=== PATIENT | male | born 1985 | race Caucasian/White ===

== ENCOUNTER 2023-09-01 02:31 | Emergency (ER) | payer SELFPAY ==
[~2023-09-01] VITALS: Ht 167.6 cm; Wt 80.0 kg
[2023-09-01 02:33] VITALS: TEMP 98.2; O2SAT 98
[2023-09-01] MEDS: MECLIZINE 25MG TABLET PO ONE (03:09)
[2023-09-01] MEDS: SODIUM CHLORIDE 0.9% 1,000 ML IV ONE (03:20)
[2023-09-01] MEDS: ONDANSETRON HCL 4MG/2ML INJ IV STA (03:20)
[2023-09-01] MEDS: LORAZEPAM 2MG/ML INJ IV ONE (03:20)
[2023-09-01 03:23] LABS: BASOPHILS % 0.6 % (0.0-2.0); EOSINOPHILS % 2.3 % (0.0-5.0); HEMATOCRIT. 44.5 % (42.0-52.0); HEMOGLOBIN. 14.9 g/dL (14.0-18.0); MEAN CORPUSCULAR HEMOGLOBIN 29.1 pg (28.0-32.0); MEAN CORPUSCULAR HGB CONC 33.6 g/dL (31.0-37.0); MEAN CORPUSCULAR VOLUME 86.8 fL (80.0-94.0); MEAN PLATELET VOLUME 8.7 fl (7.4-10.4); NEUTROPHILS % 54.1 % (40.0-76.0); PLATELET 291 x1000/uL (130-400); RED BLOOD CELL COUNT 5.13 mill/uL (4.7-6.1); RED CELL DISTRIBUTION WIDTH 13.9 % (11.6-14.6); WHITE BLOOD COUNT 13.9 x1000/uL (4.5-11.0)
[2023-09-01 03:43] LABS: ALANINE AMINOTRANSFERASE 18 IU/L (10-49); ALBUMIN 4.4 g/dL (3.2-4.8); ASPARTATE AMINOTRANSFERASE 22 IU/L (<34); BILIRUBIN TOTAL 0.5 mg/dL (0.1-1.0); CALCIUM 8.2 mg/dL (8.7-10.4); CARBON DIOXIDE 23 mEq/L (21-32); CHLORIDE 105 mEq/L (98-107); GLUCOSE 149 mg/dL (70-105); PROTEIN TOTAL 6.9 g/dL (6.0-8.3); SODIUM 139 mEq/L (136-145); UREA NITROGEN BLOOD 10 mg/dL (9-23)
[2023-09-01 03:44] LABS: ETHANOL BLOOD < 10 mg/dL (<10)
[2023-09-01 05:54] LABS: *AMPHETAMINES SCREEN URINE NEGATIVE (NEGATIVE); *BARBITURATES SCREEN URINE NEGATIVE (NEGATIVE); *BENZODIAZEPINES SCREEN URINE NEGATIVE (NEGATIVE); *COCAINE SCREEN URINE NEGATIVE (NEGATIVE); CANNABINOID URINE SCREEN PRESUMPTIVE POSITIVE (NEGATIVE); ECSTASY MDMA SCREEN URINE NEGATIVE (NEGATIVE); METHADONE URINE SCREEN Neg (NEGATIVE); OPIATES URINE SCREEN NEGATIVE (NEGATIVE); PHENCYCLIDINE URINE SCREEN NEGATIVE (NEGATIVE)
[2023-09-01 06:45] VITALS: BP 93/52; PULSE 63; RESP 13
[2023-09-01] MEDS ORDERED: MECLIZINE 25MG TABLET PO NR (06:45)
[2023-09-01] MEDS: ONDANSETRON HCL 4MG/2ML INJ IV NR (06:51)
[2023-09-01] MEDS: POTASSIUM CHLORIDE 20MEQ TABLET SR PO ONE (06:51)
[2023-09-01] MEDS: SODIUM CHLORIDE 0.9% 500 ML IV NR (06:59)
[2023-09-01] MEDS: MECLIZINE 12.5MG TABLET PO NR (07:42)
[2023-09-01] MEDS: IOHEXOL-350 100 ML BOTTLE ONE (08:54)
[2023-09-01] MEDS ORDERED: IOHEXOL-350 100 ML BOTTLE ONE (09:52)
[2023-09-01] MEDS ORDERED: MECL-299 MT (10:24)
== END 2023-09-01 12:27 | disposition home or self-care (01) ==
LOC: ER 02:35
DX: R42 Dizziness and giddiness (principal); R51.9 Headache, unspecified; R11.0 Nausea
CPT/HCPCS: 80053; 80305; 80320; 83880; 83690; 85025; 36415; 71045; 70496; 70498; 70450; 93005; 96361; 96374; 96375; 96376; 99285; Q9967; J8597; J2060; J2405; J7030; Z7610 ×4; G0480